=== PATIENT | male | born 1965 | race Caucasian/White ===

== ENCOUNTER 2024-01-03 17:17 | Inpatient (IN) | payer MEDICAID ==
[~2024-01-03] VITALS: Ht 177.8 cm; Wt 105.2 kg
[2024-01-03] MEDS ORDERED: ONDANSETRON HCL 4 MG/2 ML VIAL IV PRN (19:15)
[2024-01-03] MEDS ORDERED: NITROGLYCERIN 0.4 MG SL TAB SL PRN (19:15)
[2024-01-03] MEDS ORDERED: MORPHINE SULFATE 4 MG/ML SYR/VIAL IV PRN (19:15)
[2024-01-03 20:00] VITALS: PULSE 65
[2024-01-03 21:00] VITALS: BP 127/67; PULSE 76; RESP 17; TEMP 97.7; O2SAT 94
[2024-01-03 21:26] LABS: Lipase 44 U/L (12-53)
[2024-01-03 21:27] LABS: Magnesium 1.9 mg/dL (1.6-2.6)
[2024-01-03 21:34] LABS: INR 1.07 (0.9-1.15); Prothrombin Time 11.2 sec (9.3-11.8)
[2024-01-03 21:48] LABS: Blood Alcohol < 3.0 mg/dL (<10)
[2024-01-03] MEDS ORDERED: TAMS0.4C36 PO (22:19)
[2024-01-03] MEDS ORDERED: OMEP20TA PO (22:19)
[2024-01-03] MEDS ORDERED: FURO20TA3 PO (22:19)
[2024-01-03] MEDS ORDERED: METO-158 PO (22:19)
[2024-01-03] MEDS ORDERED: FOLITAB22 PO (22:19)
[2024-01-03] MEDS: ATORVASTATIN 20 MG TAB PO SCH (22:38)
[2024-01-03] MEDS: ACETAMINOPHEN 325 MG TAB PO PRN (22:39)
[2024-01-03] MEDS: METOPROLOL TARTRATE 25 MG TAB PO SCH (22:40)
[2024-01-03 23:54] LABS: Basophils # (auto) 0 10 ^3/uL (0-0.2); Basophils % (auto) 0.5 % (0.0-2.0); Eosinophils # (auto) 0.2 10 ^3/uL (0-0.8); Hematocrit 38.3 % (41.0-53.0); Hemoglobin 12.4 g/dL (13.5-17.5); Lymphocytes # (auto) 1.9 10 ^3/uL (0.4-5.4); Lymphocytes % (auto) 24.1 % (10.0-50.0); Mean Corpuscular Hemoglobin 28.5 pg (28.0-32.0); Mean Corpuscular Hgb Conc. 32.5 g/dL (32.0-36.0); Mean Corpuscular Volume 87.6 fL (80.0-100.0); Monocytes # (auto) 0.6 10 ^3/uL (0-1.3); Neutrophils # (auto) 5.1 10 ^3/uL (1.6-8.6); Neutrophils % (auto) 64.4 % (37.0-80.0); Nucleated Red Blood Cells % 0.2 %; Red Blood Cells 4.37 10^6/uL (4.5-5.90); Red Cell Distribution Width 13.2 % (11.8-14.3)
[2024-01-04] VITALS (8 sets, daily range): BP systolic 104–124; BP diastolic 59–89; PULSE 58–69; RESP 14–20; TEMP 97.7–98.4; O2SAT 92–98
[2024-01-04 00:09] LABS: INR 1.06 (0.9-1.15); Partial Thromboplastin Time 27.7 SEC (24.5-34.5); Prothrombin Time 11.1 sec (9.3-11.8)
[2024-01-04] MEDS: HEPARIN SODIUM (PORCINE) 5000 UNITS/ML 1ML VIAL IV ONE ×3 (00:39→23:52)
[2024-01-04] MEDS: HEPARIN DRIP/D5W 100UNITS/ML 250 ML IV SCH ×3 (00:42→17:15)
[2024-01-04] MEDS: FUROSEMIDE 20 MG/2 ML VIAL IV SCH (06:14)
[2024-01-04 06:51] LABS: Basophils # (auto) 0.1 10 ^3/uL (0-0.2); Basophils % (auto) 0.9 % (0.0-2.0); Eosinophils # (auto) 0.2 10 ^3/uL (0-0.8); Eosinophils % (auto) 4.2 % (0.0-7.0); Hematocrit 39.9 % (41.0-53.0); Lymphocytes # (auto) 1.9 10 ^3/uL (0.4-5.4); Lymphocytes % (auto) 31.5 % (10.0-50.0); Mean Corpuscular Hemoglobin 28.3 pg (28.0-32.0); Mean Corpuscular Hgb Conc. 32.6 g/dL (32.0-36.0); Mean Corpuscular Volume 86.9 fL (80.0-100.0); Monocytes # (auto) 0.5 10 ^3/uL (0-1.3); Monocytes % (auto) 8.1 % (0.0-12.0); Neutrophils # (auto) 3.3 10 ^3/uL (1.6-8.6); Neutrophils % (auto) 55.3 % (37.0-80.0); Nucleated Red Blood Cells % 0.1 %; Red Cell Distribution Width 13.2 % (11.8-14.3)
[2024-01-04 07:26] LABS: Alanine Aminotransferase 31 U/L (7-40); Albumin 4.1 g/dL (3.2-4.8); Alkaline Phosphatase 76 U/L (46-116); Anion Gap 7 (5-15); Aspartate Aminotransferase 22 U/L (13-40); BUN/Creatinine Ratio 14.4 (10.0-20.0); Blood Urea Nitrogen 16 mg/dL (9-23); Calcium 9.3 mg/dL (8.5-10.1); Carbon Dioxide 27 mmol/L (20-30); Chloride 108 mmol/L (98-107); Cholesterol 172 mg/dL (< 200); Glucose 113 mg/dL (74-106); HDL Cholesterol 42 mg/dL (40-59); LDL Cholesterol 120 mg/dL (< 100); Potassium 4.2 mmol/L (3.5-5.1); Sodium 142 mmol/L (136-145); Triglycerides 124 mg/dL (< 150)
[2024-01-04 07:27] LABS: Bilirubin, Total 0.5 mg/dL (0.2-1.0); Total Protein 5.8 g/dL (5.7-8.2)
[2024-01-04 08:34] LABS: INR 1.07 (0.9-1.15); Partial Thromboplastin Time 32.9 SEC (24.5-34.5); Prothrombin Time 11.2 sec (9.3-11.8)
[2024-01-04] MEDS ORDERED: ONDANSETRON HCL 4 MG/2 ML VIAL IV PRN (11:30)
[2024-01-04] MEDS: ASPirin 81 mg TAB PO SCH (11:39)
[2024-01-04] MEDS: DOCUSATE SOD 100 MG CAP PO SCH (11:39)
[2024-01-04] MEDS: PANTOPRAZOLE 40 MG/10 ML VIAL INJ IV SCH (11:39)
[2024-01-04] MEDS: HYDROcodone-ACET 5/325MG TAB PO PRN (11:46)
[2024-01-04] MEDS: TAMSULOSIN HYDROCHLORIDE 0.4 MG CAP PO SCH (19:06)
[2024-01-04] MEDS: ACETAMINOPHEN 500 MG TAB PO PRN (23:28)
[2024-01-05] VITALS (8 sets, daily range): BP systolic 102–118; BP diastolic 52–69; PULSE 52–73; RESP 14–20; TEMP 97.5–98.3; O2SAT 92–98
[2024-01-05 07:14] LABS: INR 1.06 (0.9-1.15); Partial Thromboplastin Time 42.7 SEC (24.5-34.5); Prothrombin Time 11.1 sec (9.3-11.8)
[2024-01-05] MEDS: HEPARIN DRIP/D5W 100UNITS/ML 250 ML IV SCH ×2 (07:45→17:45)
[2024-01-05 17:02] LABS: Chloride 107 mmol/L (98-107); Potassium 3.9 mmol/L (3.5-5.1); Sodium 140 mmol/L (136-145)
[2024-01-05 17:03] LABS: Anion Gap 7 (5-15); Calcium 9.6 mg/dL (8.7-10.4); Carbon Dioxide 26 mmol/L (20-30)
[2024-01-05 17:08] LABS: BUN/Creatinine Ratio 14.5 (10.0-20.0); Blood Urea Nitrogen 16 mg/dL (9-23); Glucose 111 mg/dL (74-106)
[2024-01-05 17:09] LABS: INR 1.04 (0.9-1.15); Magnesium 1.9 mg/dL (1.6-2.6); Prothrombin Time 10.9 sec (9.3-11.8)
[2024-01-06] VITALS (12 sets, daily range): BP systolic 108–130; BP diastolic 57–83; PULSE 60–107; RESP 12–20; TEMP 97.3–98.3; O2SAT 90–96
[2024-01-06] MEDS: MORPHINE SULFATE INJ 2 MG/ml SYRG IV PRN (00:08)
[2024-01-06 01:08] LABS: INR 1.06 (0.9-1.15); Partial Thromboplastin Time 47.4 SEC (24.5-34.5); Prothrombin Time 11.1 sec (9.3-11.8)
[2024-01-06] MEDS: FUROSEMIDE 20 MG/2 ML VIAL IV SCH (06:58)
[2024-01-06] MEDS: LIDOCAINE 2%HCL (LOCAL ANESTH.) INJ 20ML MDV ONE (08:03)
[2024-01-06] MEDS: IODIXANOL 320MG/ML 100ML BTL IV ONE ×2 (08:03→09:25)
[2024-01-06 08:10] LABS: INR 1.08 (0.9-1.15); Prothrombin Time 11.3 sec (9.3-11.8)
[2024-01-06 08:19] LABS: Partial Thromboplastin Time 88.9 SEC (24.5-34.5)
[2024-01-06] MEDS ORDERED: HEPARIN DRIP/D5W 100UNITS/ML 250 ML IV SCH (08:30)
[2024-01-06] MEDS: HEPARIN SODIUM (PORCINE) 5000 UNITS/ML 1ML VIAL ONE (08:34)
[2024-01-06] MEDS: ANGIOMAX 250 MG VIAL IV ONE (08:34)
[2024-01-06] MEDS: fentaNYL CITRATE 100 MCG/2 ML VL ONE (08:35)
[2024-01-06] MEDS: VERAPAMIL 2.5MG/ML INJ 2ML VIAL IV ONE (08:35)
[2024-01-06] MEDS: MIDAZOLAM HCL 2MG/2ML 2ml VIAL (1mg/ml) ONE (08:36)
[2024-01-06] MEDS: SODIUM CHL 0.9% 0 ML ONE (08:36)
[2024-01-06 15:25] LABS: INR 1.05 (0.9-1.15); Partial Thromboplastin Time 25.5 SEC (24.5-34.5)
[2024-01-07 01:00] VITALS: BP 115/72; PULSE 66; RESP 20; TEMP 98; O2SAT 95
[2024-01-07 01:20] VITALS: BP 114/62; PULSE 74; RESP 20; TEMP 98.3; O2SAT 93
== END 2024-01-07 01:41 | disposition short-term general hospital (02) | DRG 190 ==
LOC: TELE-EAST 18:48
PROVIDERS: ADMIT Nurse Practitioner Acute Care; ATTEND Nurse Practitioner Acute Care
PROC: 03HY32Z Insertion of Monitoring Device into Upper Artery, Percutaneous Approach (ICD-10-PCS; principal; 2024-01-06)
PROC: 4A023N7 Measurement of Cardiac Sampling and Pressure, Left Heart, Percutaneous Approach (ICD-10-PCS; 2024-01-06)
PROC: B215YZZ Fluoroscopy of Left Heart using Other Contrast (ICD-10-PCS; 2024-01-06)
PROC: B211YZZ Fluoroscopy of Multiple Coronary Arteries using Other Contrast (ICD-10-PCS; 2024-01-06)
DX: I21.4 Non-ST elevation (NSTEMI) myocardial infarction (principal); I50.31 Acute diastolic (congestive) heart failure; I11.0 Hypertensive heart disease with heart failure; E66.9 Obesity, unspecified; E78.5 Hyperlipidemia, unspecified; I25.2 Old myocardial infarction; K21.9 Gastro-esophageal reflux disease without esophagitis; I25.10 Atherosclerotic heart disease of native coronary artery without angina pectoris; N40.0 Benign prostatic hyperplasia without lower urinary tract symptoms; Z95.5 Presence of coronary angioplasty implant and graft; Z68.33 Body mass index [BMI] 33.0-33.9, adult
CPT/HCPCS: 36415; 71045; 80048; 80053; 80061; 80320; 83690; 83735; 84484; 85025; 85610; 85730; 93306; 93458; 93970; 99152; C9113; G0378; J2250; Q9967